=== PATIENT | female | born 1985 | race Caucasian/White ===

== ENCOUNTER 2022-06-04 09:16 | Outpatient (CLI) | payer OTHER ==
[~2022-06-04] VITALS: Ht 165.1 cm; Wt 70.7 kg
[2022-06-04 09:40] VITALS: BP 128/85
[2022-06-04] MEDS ORDERED: LEVO25TA5 PO (09:55)
[2022-06-04] MEDS ORDERED: ZOLO50TA PO (09:55)
[2022-06-04] MEDS ORDERED: ASPI81CH33 PO (09:55)
[2022-06-04] MEDS ORDERED: PRENTAB9 PO (09:55)
[2022-06-04] MEDS ORDERED: zyrtec (09:55)
[2022-06-04 12:25] VITALS: BP 136/84
[2022-06-04] MEDS ORDERED: LR 1,000 ML IV ONE (12:50)
[2022-06-04 12:57] VITALS: BP 126/84
[2022-06-04 13:56] LABS: HEMATOCRIT 42.4 % (36.0-47.0); HEMOGLOBIN 13.5 g/dl (12.0-15.5); MEAN CORPUSCULAR HEMOGLOBIN 29.5 pg (27.0-33.0); MEAN CORPUSCULAR HGB CONC 31.8 g/dl (32.0-36.5); MEAN CORPUSCULAR VOLUME 92.6 fl (80.0-96.0); PLATELET COUNT, AUTOMATED 200 10^3/uL (150-450); RED BLOOD COUNT 4.58 10^6/uL (4.00-5.40); WHITE BLOOD COUNT 10.1 10^3/uL (4.0-10.0)
== END 2022-06-04 19:44 | disposition home or self-care (01) ==
LOC: M LDO 09:16
PROVIDERS: ATTEND Registered Nurse
DX: O36.8330 Maternal care for abnormalities of the fetal heart rate or rhythm, third trimester, not applicable or unspecified (principal); Z3A.37 37 weeks gestation of pregnancy; O09.523 Supervision of elderly multigravida, third trimester; O99.283 Endocrine, nutritional and metabolic diseases complicating pregnancy, third trimester; E06.3 Autoimmune thyroiditis; O99.343 Other mental disorders complicating pregnancy, third trimester; F41.9 Anxiety disorder, unspecified; Z86.16 Personal history of COVID-19
CPT/HCPCS: 36415; 59025; 76815; 76819; 76820; 85027; 86780; 86850; 86900; 86901; G0463

== ENCOUNTER 2022-06-13 02:24 | Outpatient (CLI) | payer OTHER ==
[~2022-06-13] VITALS: Ht 165.1 cm; Wt 70.7 kg
[~2022-06-13 02:24] MED LIST: ASPI81CH33 PO; LEVO25TA5 PO; PRENTAB9 PO; ZOLO50TA PO; zyrtec
[2022-06-13 02:45] VITALS: BP 120/83
[2022-06-13] MEDS ORDERED: FLAG375C PO (02:48)
[2022-06-13] MEDS ORDERED: LACTATED RINGER'S 1000 ML IV STA (03:43)
[2022-06-13] MEDS ORDERED: LR 1,000 ML IV SCH (03:45)
[2022-06-13] MEDS ORDERED: TERBUTALINE SULFATE 1 MG/ML VIAL (J3105) SC ONE (03:45)
[2022-06-13 04:07] LABS: HEMATOCRIT 36.6 % (36.0-47.0); MEAN CORPUSCULAR HEMOGLOBIN 29.7 pg (27.0-33.0); MEAN CORPUSCULAR HGB CONC 32.8 g/dl (32.0-36.5); MEAN CORPUSCULAR VOLUME 90.6 fl (80.0-96.0); PLATELET COUNT, AUTOMATED 185 10^3/uL (150-450); RED BLOOD COUNT 4.04 10^6/uL (4.00-5.40); WHITE BLOOD COUNT 9.5 10^3/uL (4.0-10.0)
[2022-06-13 04:19] VITALS: BP 116/71
== END 2022-06-13 04:55 | disposition home or self-care (01) ==
LOC: M LDO 02:24
PROVIDERS: ATTEND Obstetrics & Gynecology
DX: O47.1 False labor at or after 37 completed weeks of gestation (principal); Z3A.39 39 weeks gestation of pregnancy; O32.1XX0 Maternal care for breech presentation, not applicable or unspecified; O09.523 Supervision of elderly multigravida, third trimester; Z88.5 Allergy status to narcotic agent; Z79.899 Other long term (current) drug therapy
CPT/HCPCS: 59025; 85027; 86850; 86900; 86901; 96360; G0463

== ENCOUNTER 2022-06-14 14:52 | Inpatient (IN) | payer OTHER ==
[~2022-06-14] VITALS: Ht 165.1 cm; Wt 71.2 kg
[2022-06-14] VITALS (23 sets, daily range): BP systolic 102–165; BP diastolic 53–87
[~2022-06-14 14:52] MED LIST changes: +FLAG375C PO
[2022-06-14] MEDS ORDERED: HOME MED LIST COMPLETE! XX SCH (15:20)
[2022-06-14] MEDS ORDERED: LACTATED RINGER'S 1000 ML IV STA (16:01)
[2022-06-14] MEDS ORDERED: LR 1,000 ML IV SCH ×3 (16:05→21:35)
[2022-06-14] MEDS ORDERED: TRANEXAMIC ACID INJection 1,000 MG in NS 100 ML IV PRN (16:05)
[2022-06-14] MEDS ORDERED: OXYTOCIN DRIP 30 UNITS in IV 1 EA IV PRN ×4 (16:05)
[2022-06-14] MEDS ORDERED: LIDOCAINE 1% MDV 20ML VIAL INFIL PRN (16:05)
[2022-06-14] MEDS ORDERED: METHYLERGONOVINE MALEATE 0.2 MG/ML VIAL (J2210) IM PRN ×2 (16:05→20:50)
[2022-06-14 16:37] LABS: HEMATOCRIT 40.5 % (36.0-47.0); HEMOGLOBIN 13.2 g/dl (12.0-15.5); MEAN CORPUSCULAR HEMOGLOBIN 29.7 pg (27.0-33.0); MEAN CORPUSCULAR HGB CONC 32.6 g/dl (32.0-36.5); PLATELET COUNT, AUTOMATED 203 10^3/uL (150-450); RED BLOOD COUNT 4.45 10^6/uL (4.00-5.40); WHITE BLOOD COUNT 13.4 10^3/uL (4.0-10.0)
[2022-06-14] MEDS ORDERED: TERBUTALINE SULFATE 1 MG/ML VIAL (J3105) SC ONE (17:00)
[2022-06-14] MEDS ORDERED: FENTANYL 2MCG/ML ROPIVACAINE 0.2% IN 0.9% NACL 100ML IVBAG As Ordered ONE (17:09)
[2022-06-14] MEDS ORDERED: EPIDURAL/PCA KEYS XX PRN (17:35)
[2022-06-14] MEDS ORDERED: LR 500 ML IV PRN (17:35)
[2022-06-14] MEDS ORDERED: ePHEDrine SULFATE 25 MG/5 ML(5MG/ML) SYRINGE IVP PRN (17:35)
[2022-06-14] MEDS ORDERED: FENTANYL/ROPIVACAINE/NACL BAG 100 ML EPIDURAL SCH (17:35)
[2022-06-14] MEDS ORDERED: NALOXONE INJ 0.4MG/1ML VIAL (J2310 PER 1MG) IV PRN ×3 (17:35→21:35)
[2022-06-14] MEDS ORDERED: diphenhydrAMINE 50MG/ML VIAL (J1200) IV PRN ×2 (17:35→21:35)
[2022-06-14] MEDS ORDERED: ONDANSETRON 4MG 2ML VIAL IV PRN ×3 (17:35→21:35)
[2022-06-14] MEDS ORDERED: ceFAZolin 2 GM/D5W 50 ML IV BAG (J0690 PER 500MG) As Ordered ONE (19:26)
[2022-06-14] MEDS ORDERED: BICITRA 30ML SOLN UDC As Ordered ONE (19:27)
[2022-06-14] MEDS ORDERED: AZITHROMYCIN INJ 500 MG, VIAL MATE ADAPTER 1 EACH in NS 250 ML IV ONE (19:30)
[2022-06-14] MEDS ORDERED: ceFAZolin SOD 2 GM in IV 1 EA IV ONE (19:30)
[2022-06-14] MEDS ORDERED: PHENYLephrine 500MCG 5ML (100MCG/ML) SYRINGE As Ordered ONE ×2 (19:43→20:23)
[2022-06-14] MEDS ORDERED: BUPIVACAINE HCL 0.25% 30ML VIAL As Ordered ONE (19:46)
[2022-06-14] MEDS ORDERED: SODIUM BICARBONATE 8.4% INJ 50MEQ 50 ML VIAL As Ordered ONE (19:50)
[2022-06-14] MEDS ORDERED: LIDOCAINE 2% W/EPINEPHRINE 20ML VIAL **PRES FREE As Ordered ONE (19:50)
[2022-06-14] MEDS ORDERED: ONDANSETRON 4MG 2ML VIAL As Ordered ONE (20:00)
[2022-06-14] MEDS ORDERED: KETOROLAC 60MG 2ML VIAL As Ordered ONE (20:00)
[2022-06-14] MEDS ORDERED: MORPHINE PRES-FREE INJ 10 MG/10 ML VIAL As Ordered ONE (20:01)
[2022-06-14 20:21] LABS: CORD GAS ABE A -7.6; CORD GAS ABE V -6.6; CORD GAS HCO3 A 21.1 MEQ/L; CORD GAS HCO3 V 18.8 MEQ/L; CORD GAS O2 SAT A 15.2 %; CORD GAS O2 SAT V 59.8 %; CORD GAS PCO2 A 55.7 mmHg; CORD GAS PCO2 V 37.3 mmHg; CORD GAS PH A 7.196 UNITS; CORD GAS PH V 7.32 UNITS; CORD GAS PO2 A 11.4 mmHg; CORD GAS PO2 V 24.9 mmHg; CORD GAS SBC A 16.6 MEQ/L; CORD GAS SBC V 18.3 MEQ/L; CORD GAS TCO2 A 22.8 MEQ/L; CORD GAS TCO2 V 19.9 MEQ/L
[2022-06-14] MEDS ORDERED: OXYTOCIN DRIP 30 UNITS in IV 1 EA IV SCH (20:50)
[2022-06-14] MEDS ORDERED: DOCUSATE SODIUM 100MG CAPSULE PO PRN (20:50)
[2022-06-14] MEDS ORDERED: RHOGAM 300 MCG (1500 IU) INJ (J2790) IM SCH (20:50)
[2022-06-14] MEDS ORDERED: PROMETHAZINE 25 MG TAB PO PRN (20:50)
[2022-06-14] MEDS ORDERED: OXYTOCIN 30 UNITS IN 0.9% NaCl 500ML IV BAG (J2590) As Ordered ONE (21:02)
[2022-06-14] MEDS ORDERED: oxyCODONE 5MG TAB PO PRN ×3 (21:25→21:35)
[2022-06-14] MEDS ORDERED: fentaNYL 100 MCG/2 ML INJECTION IV PRN (21:35)
[2022-06-14] MEDS: SLF 3 ML SYR IV SCH (21:35)
[2022-06-14] MEDS ORDERED: **NOTE PATIENT COMMENT** MISC XX SCH (21:35)
[2022-06-14] MEDS ORDERED: METOCLOPRAMIDE INJ 10MG/2ML VIAL (J2765 PER 1) IV PRN (21:35)
[2022-06-14] MEDS ORDERED: CALCIUM CARBONATE 500 MG CHEW U/D PO PRN (21:40)
[2022-06-14] MEDS: ACETAMINOPHEN 500 MG TAB PO SCH (23:31)
[2022-06-14] MEDS: SIMETHICONE 80MG CHEW TAB PO PRN (23:31)
[2022-06-14] MEDS: SERTRALINE HCL 50 MG TAB PO SCH (23:31)
[2022-06-15] VITALS (9 sets, daily range): BP systolic 108–124; BP diastolic 56–77
[2022-06-15] MEDS: ACETAMINOPHEN 500 MG TAB PO SCH ×4 (02:50→21:26)
[2022-06-15] MEDS: KETOROLAC 30 MG/ML 1ML VIAL IV SCH ×3 (03:21→16:09)
[2022-06-15] MEDS: SLF 3 ML SYR IV SCH ×2 (05:35→13:50)
[2022-06-15] MEDS: LEVOTHYROXINE 25MCG TABLET (0.025MG) PO SCH (06:30)
[2022-06-15 07:53] LABS: HEMATOCRIT 30.1 % (36.0-47.0); MEAN CORPUSCULAR HEMOGLOBIN 29.8 pg (27.0-33.0); MEAN CORPUSCULAR HGB CONC 32.2 g/dl (32.0-36.5); MEAN CORPUSCULAR VOLUME 92.3 fl (80.0-96.0); PLATELET COUNT, AUTOMATED 139 10^3/uL (150-450); RED BLOOD COUNT 3.26 10^6/uL (4.00-5.40); WHITE BLOOD COUNT 10.2 10^3/uL (4.0-10.0)
[2022-06-15 07:54] LABS: HEMOGLOBIN 9.7 g/dl (12.0-15.5)
[2022-06-15] MEDS: PRENATAL VITAMINS CHEWABLE TABLET PO SCH (08:09)
[2022-06-15] MEDS ORDERED: CETIRIZINE (ZyrTEC) 10 MG TAB PO SCH (09:00)
[2022-06-15] MEDS: SIMETHICONE 80MG CHEW TAB PO PRN ×2 (09:51→21:38)
[2022-06-15] MEDS: GABAPENTIN 300 MG CAP PO SCH ×3 (09:51→21:22)
[2022-06-15] MEDS: SERTRALINE HCL 50 MG TAB PO SCH (21:21)
[2022-06-16] MEDS: IBUPROFEN 800 MG TAB PO SCH ×2 (00:11→08:34)
[2022-06-16 02:50] VITALS: BP 110/76
[2022-06-16] MEDS: ACETAMINOPHEN 500 MG TAB PO SCH ×2 (02:54→03:45)
[2022-06-16] MEDS ORDERED: OXYC-517 PO (05:03)
[2022-06-16] MEDS ORDERED: IBUP80TA PO (05:03)
[2022-06-16] MEDS ORDERED: ACET1TAB55 PO (05:03)
[2022-06-16] MEDS ORDERED: GABA-282 PO (05:03)
[2022-06-16] MEDS ORDERED: COLA100C5 PO (05:03)
[2022-06-16] MEDS: LEVOTHYROXINE 25MCG TABLET (0.025MG) PO SCH (06:28)
[2022-06-16 06:30] VITALS: BP 124/78
[2022-06-16] MEDS: GABAPENTIN 300 MG CAP PO SCH (08:33)
[2022-06-16] MEDS: PRENATAL VITAMINS CHEWABLE TABLET PO SCH (08:34)
[2022-06-16] MEDS ORDERED: MEASLES,MUMPS,RUBELLA VACCINE INJ (MMR-II) (90707) SC.IMMUN ONE (09:00)
[2022-06-16 10:15] VITALS: BP 119/65
[2022-06-16] MEDS: SIMETHICONE 80MG CHEW TAB PO PRN (10:44)
[2022-06-16] MEDS ORDERED: INFLUENZA QUADRIVALENT PF VACCINE 0.5ML SYRINGE IM.IMMUN ONE (11:30)
== END 2022-06-16 14:08 | disposition home or self-care (01) | DRG 773 ==
LOC: M LDO 14:52 → M LDI 15:26 → M OBS 22:17
PROVIDERS: ADMIT Obstetrics & Gynecology; ATTEND Obstetrics & Gynecology
PROC: 10D00Z1 Extraction of Products of Conception, Low, Open Approach (ICD-10-PCS; principal; 2022-06-14 19:42)
DX: O32.8XX0 Maternal care for other malpresentation of fetus, not applicable or unspecified (principal); Z3A.39 39 weeks gestation of pregnancy; O99.284 Endocrine, nutritional and metabolic diseases complicating childbirth; E03.9 Hypothyroidism, unspecified; O99.344 Other mental disorders complicating childbirth; F41.9 Anxiety disorder, unspecified; Z86.16 Personal history of COVID-19; O09.523 Supervision of elderly multigravida, third trimester; Z79.890 Hormone replacement therapy; Z79.899 Other long term (current) drug therapy; Z79.82 Long term (current) use of aspirin; Z37.0 Single live birth; Z88.5 Allergy status to narcotic agent

== ENCOUNTER → 2022-10-08 | Outpatient (REF) | payer OTHER ==
[~2022-10-08] MED LIST changes: +ACET1TAB55 PO; +COLA100C5 PO; +GABA-282 PO; +IBUP80TA PO; +OXYC-517 PO
[2022-10-08 13:27] LABS: APPEARANCE, URINE MANUAL CLEAR (CLEAR); COLOR, URINE MANUAL LT YELLOW (YELLOW)
[2022-10-08 13:28] LABS: BILIRUBIN, URINE MANUAL NEGATIVE (NEGATIVE); BLOOD URINE MANUAL NEGATIVE (NEGATIVE); GLUCOSE, URINE (UA) MANUAL NEGATIVE (NEGATIVE); KETONE, URINE MANUAL NEGATIVE (NEGATIVE); LEUKOCYTE ESTERASE, URINE MAN POSITIVE (NEGATIVE); NITRITE, URINE MANUAL NEGATIVE (NEGATIVE); PROTEIN, URINE MANUAL NEGATIVE (NEGATIVE); SPECIFIC GRAVITY,URINE MANUAL 1.005 (1.002-1.035); UROBILINOGEN, URINE MANUAL NORMAL (NORMAL)
[2022-10-08 14:41] LABS: BACTERIA, URINE SMALL AMOUNT; HYALINE CAST, URINE NONE SEEN /lpf (0-1); RBC, URINE 0-1 /hpf (0-3); SQUAMOUS EPITHELIAL CELL URINE SMALL AMOUNT /hpf (SMALL AMT)
[2022-10-09 14:07] LABS: URINE PREG TEST NEGATIVE (NEGATIVE)
== END ==
LOC: M LAB REF 11:32
PROVIDERS: ATTEND Physician Assistant
DX: N39.0 Urinary tract infection, site not specified (principal); N91.2 Amenorrhea, unspecified